=== PATIENT | female | born 1960 | race Caucasian/White ===

== ENCOUNTER 2018-02-02 16:46 | Emergency (ER) | payer SELFPAY ==
[2018-02-02] MEDS ORDERED: Dextrose 5%-0.9% NaCl 1,000 ML IV SCH (17:00)
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
[2018-02-02] MEDS ORDERED: Metoclopramide 10 MG/2 ML SDV IVPUSH ONE (17:14)
[2018-02-02] MEDS ORDERED: HYDROmorphone 0.5 MG/0.5 ML SYRINGE IVPUSH ONE (17:14)
[2018-02-02] MEDS ORDERED: Iopamidol 612 MG/ML 150 ML Bottle IVPUSH ONE (18:41)
[2018-02-02] MEDS ORDERED: Sodium Chloride 0.9% 10 ML Syringe FLUSH PRN (18:41)
--- NOTE | 2018-02-04 10:03 | CT ---
CT abdomen and pelvis Technique: Multiple axial sections were obtained from above the dome of the diaphragm inferiorly through the pubic symphysis. Intravenous contrast was utilized. No oral contrast was given. Comparison: Previous abdominal x-ray performed earlier on the same day (5:25 PM). Findings: Small portion of the visualized lung bases are clear. Tw small low density findings are seen within the liver. These measure about 5 mm in size and are too small to characterize by Hounsfield unit measurements but are felt to be incidental. Spleen appears within normal limits. Adrenal glands show no nodule. Kidneys show symmetric contrast enhancement without hydronephrosis or mass. Pancreas appears within normal limits. Surgical clips are seen from prior cholecystectomy. Aorta shows no aneurysmal dilatation. No retroperitoneal adenopathy or mesenteric abnormalities are seen. Appendix is seen which is normal in size. No pelvic mass or adenopathy is seen. Small amount of free fluid is seen within the cul-de-sac which is felt to be incidental. Slight colonic diverticuli are seen without inflammatory change. Delayed images show contrast within the distal ureters and bladder. Bone window settings were reviewed which appear within normal limits for the patient's age. Incidental note of small fat containing umbilical hernia. Impression: 1. Findings which are felt to be incidental as noted above. Nothing acute is appreciated. Diagnostic code #2 I agree with preliminary report from [facility], finalized at 02/02/18, 8:10 PM Central Time
--- NOTE | 2018-02-04 10:03 | CR ---
Abdomen: Supine view of the abdomen was obtained. Comparison: No previous study. Several loops of mildly prominent small bowel gas are noted. This is likely incidental. Scattered gas within colon is also noted which appears unremarkable. Multiple calcifications are seen within the pelvis compatible with phleboliths. Single surgical clip is seen from prior cholecystectomy. Bony structures are grossly intact. Impression: 1. Findings which are felt to be incidental as described above. Diagnostic code #2
== END 2018-02-02 20:02 | disposition home or self-care (01) ==
LOC: JD.ED 16:46
DX: A08.4 Viral intestinal infection, unspecified (principal)
CPT/HCPCS: 36415; 74018; 74177; 80053; 81001; 83605; 83690; 85007; 85027; 86140; 93005; 96361; 96374; 96375; 99284; J1170; J2765; J7042; J7050; Q9967; 93010